=== PATIENT | female | born 1985 | race Caucasian/White ===

== ENCOUNTER 2016-11-24 10:54 | Inpatient (IN) | payer OTHER ==
[~2016-11-24] VITALS: Ht 167.6 cm; Wt 93.9 kg
[~2016-11-24 10:54] MED LIST: FLUO20CA25 PO; HYDROcodone-APAP 5-325 PO
[2016-11-24] MEDS ORDERED: Lactated Ringer's 1,000 ML IV PRN (11:26)
[2016-11-24] MEDS ORDERED: Oxytocin 10 Unit/mL Inj IM PRN ×2 (11:30→22:05)
[2016-11-24] MEDS ORDERED: Hemorrhage Kit, Post Partum XX ONE ×3 (11:30→22:05)
[2016-11-24] MEDS ORDERED: Ondansetron 2 mg/mL 2 mL Inj IVPUSH PRN (11:30)
[2016-11-24] MEDS ORDERED: fentaNYL-PF 50 mCg/mL 2 mL Inj IVPUSH PRN (11:30)
[2016-11-24] MEDS ORDERED: Methylergonovine 0.2 mg/mL Inj IM PRN ×2 (11:30→22:05)
[2016-11-24] MEDS ORDERED: Sodium Chloride LOK Flush 10 mL Syringe IVFLUSH PRN (11:30)
[2016-11-24] MEDS ORDERED: Oxytocin 30 Units/500 mL LR 30 UNITS in IV Premix 1 EACH IV PRN ×3 (11:30→22:05)
[2016-11-24] MEDS ORDERED: Carboprost 250 mCg/mL Inj IM PRN ×2 (11:30→22:05)
[2016-11-24 11:48] LABS: Mean Corpuscular Hemoglobin 31.1 pg (27.0-35.0); Mean Corpuscular Volume 92.3 fL (81-100)
--- NOTE | 2016-11-24 13:00 | PCM.HPOB ---
Subjective Date of Service: Nov 24, 2016 Referring Provider: Admitting Physician: Gely Cramer MD Primary Care Physician: Alex Villarreal MD Attending Physician: Gely Cramer MD Chief Complaint rupture of membrane this morning around 7 AM. History of Present History of Present Illness 31 y/o, , at 37 wk 6 d, EDC 12/09/16 by 10 wk u/s with unsure LMP, came to [facility] at 11 AM today for ruptured membrane at 7 AM this morning, with clear fluid. Initial exam revealed that her cervix was 3 to 4 cm dilated. Her was complicated by mild depression, anxiety. She has a history of right side ectopic required lap linear salpingostomy on 08/15/15. No major issues during her current otherwise. Her blood type: A+; RPR nonreactive; rubella imm; Hep B surface antigen neg; HIV neg; GC/CT neg; quad screen normal; glucose tolerance tests normal; GBS neg. OB History: (3), Para (1), (1) Past Medical History Obstetrical History: right side ectopic for her 2nd . Medical History: depression, anxiety Hx Tobacco Use: No Past Family History Living Arrangement: with Family Genetic Screening/Counseling Genetic Screening/Counseling: Negative Review of Systems Constitutional: Y: Change of appitite, Chills, Dizziness, Fever, Malaise, Other , Pain, Sweats, Weakness, Weight loss Eyes: Denies: Blurred Vision, Conjunctive Inflammation, Double Vision, Eyelid Inflammation, Other, Pain, Redness, Vision Changes ENT: Denies: Dental Problems, Dysphagia, Ear Discharge, Ear Pain, Hoarseness, Membranes Dry, Nasal Congestion, Nose Discharge, Nose Pain, Other, Throat Pain, Tinnitus, Ulcers/Sores in Mouth Cardiovascular: Denies: Chest Pain, Edema, Orthopnea, Other, Palpitations, SOB while laying flat Respiratory: Denies: Cough, Cough with bloody sputum, Other, Pleuritic Chest Pain, Pleuritic Chest Pain, SOB with Exertion, Sputum, Wheezing Gastrointestinal: Denies: Abdominal Pain, Black tarry stools, Blood in stool ( red), Change in Appetite, Constipation, Diarrhea, Epigastric pain, Heartburn, Nausea, Other, Use of Laxatives, Vomiting Genitourinary: Denies: Anuria, Change in Frequency, Dysuria, Hematuria, Incontinence, Nocturia, Other, Retention Musculoskeletal: Denies: Back Pain, Deformity, Limitation of Function, Neck Pain, Other, Redness, Shoulder Pain, Swelling Skin/Breasts: Denies: Bruising, Discharge, Dry or Flakiness, Jaundice, Lesions , Masses, Mastalgia, Other, Rash, Scars, Ulcers Skin: Denies: Bruising, Dry or Flakiness, Jaundice, Lesions, Other, Rash, Scars , Ulcers Neurological: Denies: Change in Speech, Confusion, Dizziness, Incoordination, Numbness, Other, Seizures, Somnolence, Tremors, Weakness Psychologic: Denies: Agitation, Anxious, Apprehensive, Depression, Insomnia, Instability, Nervousness, Other Endocrine: Denies: Blood Glucose Review, Change in Appitite, Diaphoresis, Excessive Thirst, Intolerent to Heat/Cold, Other, Recent A1C, Urinating frequently Hematologic: Denies: Abnormal bleeding, Adenopathy, Bruising, Other Allergy Coded Allergies: Sulfa (Sulfonamide Antibiotics) (Verified Allergy, Unknown, 08/15/15) cefaclor (Verified Allergy, Unknown, 08/15/15) Exam Vital Signs normal Constitutional: Well-developed, Well-nourished HEENT: Atraumatic, PERRLA Lungs: Clear to Auscultation Heart: Exam Unremarkable, Regular Rate/Rhythm, Normal S1, Normal S2, No Murmurs /Rubs/Gallops Fundus heart tone: category 1 tracing. Abdomen: Gravid Extremities: Pulses Palpable x4, Warm, No Edema Neurological/Psychiatric: Alert, Oriented X3, Cooperative, No Acute Distress Neuro: Grossly Neurologically Intact Labs/Diagnostics Labs Aem=701, [id number] Maternal Blood Type: A Hx Rho(D) Immune Globulin: No Group B Strep Results: Negative OB Intrapartum Assessment/Plan Assessment term with premature rupture of membrane; GBS neg; anticipate normal vaginal delivery through active labor management. The case was discussed with Dr. Clayton. Gely Cramer MD Nov 24, 2016 13:00
[2016-11-24] MEDS ORDERED: fentaNYL 2 mCg/mL-Bupivicaine 0.125% 100 mL Premix EPIDURAL ONE (13:02)
[2016-11-24] MEDS: Lactated Ringer's 1,000 ML IV PRN ×2 (16:09→18:18)
[2016-11-24] MEDS: Lactated Ringer's 1,000 ML IV SCH (22:00)
[2016-11-24] MEDS ORDERED: Benzocaine (Dermoplast) 20% 60 Gm Spray TOPICAL PRN (22:05)
[2016-11-24] MEDS ORDERED: HYDROcodone-APAP 5-325 mg Tablet PO PRN (22:05)
[2016-11-24] MEDS ORDERED: Witch Hazel-Glycerin Pads TOPICAL PRN (22:05)
[2016-11-24] MEDS ORDERED: LANOlin HPA 7 Gm Ointment TOPICAL PRN (22:05)
--- NOTE | 2016-11-24 22:33 | PCM.OBVAG ---
Vaginal Delivery Date of Service Nov 24, 2016 Pre Operative Diagnosis Pre Operative Diagnosis 37 weeks 6 days gestation SROM Post Operative Diagnosis Post Operative Diagnosis 37 weeks 6 days gestation SROM Retained Placenta Procedure Procedure: 1. 2. Manual extraction of placenta Obstetical Procedure: Normal Spontaneous Vaginal Delivery, Manual Extraction of Placenta (done by Dr. Alex Villarrela) Corridor Redevelopment Manager/Machine Steak Tenderizer Provider and Machine Steak Tenderizer: Alex Villarreal Indication for Procedure Indication for Procedure 31 at 37 weeks 6 days SROM brought in for induction of labor(see Dr. Cramer' s note) Induction: Induction of labor, SROM Findings Obstetrical Findings: [place] (Male), Cord (3 Vessel), Presentation (Vertex), 1 minute (9), 5 minutes (9), 10 minutes, Placenta (Intact/ Normal) Analgesia/Medications Obstetrical Anesthesia: IV pain medication Procedure Details Procedure Details Dr. Villarreal was notified of possible precipitous delivery and was in route to the [facility]. Dr Holly was immediately available on the [facility] and was called for delivery. The patient was completely dilated at 20:58. A sterile drape was placed under the patient's buttocks and delivered in a cephalic presentation at 2101. After delivery of the Dr. Villarreal stepped in to deliver the placenta. I was called back to the room for a retained placenta and observed Dr. Villarreal perform a manual extraction. The patient was given 100mcg of fentanyl prior to extraction of placenta. The placenta was delivered intact at 2144. The fundus was firm and bleeding controlled. Patient was hypotensive, but recovered without additional intervention. Apgars 9 and 9. was placed on maternal abdomen for skin to skin bonding and cord blood was sent. Blood Loss & Administration Estimated Blood Loss: 700 Blood Admin during procedure: No Post Procedure Plan Post Procedure Plan Routine pp care Post delivery Condition: Mom stable, Baby stable to nursery Kandis Holly MD Nov 24, 2016 22:33
[2016-11-25 07:00] LABS: Mean Corpuscular Hemoglobin 31.4 pg (27.0-35.0); Mean Corpuscular Volume 93.3 fL (81-100)
[2016-11-25] MEDS: Ascorbic Acid 500 mg Tablet PO SCH ×2 (08:40→17:52)
[2016-11-25] MEDS: Lactated Ringer's 1,000 ML IV SCH (14:01)
[2016-11-25 17:55] VITALS: BP 123/87; PULSE 82; RESP 20
--- NOTE | 2016-11-25 18:07 | PCM.DIOB ---
Obstetrical Disch Instruction Date of Service: Nov 25, 2016 Dates of Hospitalization Date of Hospital Admission Nov 24, 2016 at 11:23 Providers Admitting Physician: Gely Cramer MD Primary Care Physician: Alex Villarreal MD Attending Physician: Gely Cramer MD Discharge Diagnosis Problems: (1) (normal spontaneous vaginal delivery) Status: Acute ICD Code: O80 (2) hemorrhage Status: Acute ICD Code: O72.1 (3) Retained placenta Status: Acute ICD Code: O73.0 (4) Anemia Qualifiers: Other causes of anemia: acute posthemorrhagic Status: Acute ICD Code: D64.9 Diet Discharge Diet: No restrictions Activity Discharge Activity-General: Pelvic Rest for 6 weeks, Try not to overdue, Be up and about, Balance rest and activity, Activity as energy allows Dressing and Incisional Care Hygiene: May shower, Perineal care, Sitz bath, Dermoplast spray, Witch Laura pads, Ice Additional Instructions Discharge Instructions Ibuprofen, DSS, vitamins and ferrous sulfate (iron) all sent electronically to Pending sale to [facility] by provider through outpatient ([facility]) electronic medical record system Follow Up Plan Follow-up Provider (F9): Alex Villarreal MD Follow-up appointment: Weeks (6) Call your provider for: Fever or Chills, Shortness of breath, Heavy vaginal bleeding, Heavy bleeding, Excessive constipation, Vaginal discomfort (swollen, painful leg), Red painful breasts Alex Villarreal MD Nov 25, 2016 18:07
--- NOTE | 2016-11-26 01:38 | DIS ---
[address] [address] DISCHARGE SUMMARY PATIENT: FLORINDA REYNOLDS : 1985 MR#: [id number] ADMIT: 11/24/2016 JOB ID: [id number] DIS: 11/25/2016 ADMISSION DIAGNOSES: 1. Term, premature rupture of membranes (PROM). 2. Induction. DISCHARGE DIAGNOSES: 1. 3 now para 2, status post normal spontaneous vaginal delivery (), induction for premature rupture of membranes (PROM). 2. Anemia, status post hemorrhage with retained placenta requiring manual removal. CONSULTATION DURING HOSPITALIZATION: Kandis Holly MD HOSPITAL COURSE: For details of admission, see H and P by Dr. Cramer. Briefly, the patient admitted at term with PROM. After did not go into spontaneous labor, Pitocin was started approximately 5-6 hours prior to delivery. The patient first began having moderately severe contractions around 5 cm and delivered less than 60 minutes later, precipitously. Pitocin was continued after delivery of , with dose increased, also Cytotec. However, the patient became hypotensive, with ongoing bleeding (EBL 700 cc), so decision made to manually remove placenta, which resolved hypotension and bleeding. For further details, please see delivery note by Dr. Holly. , the patient did quite well and was ambulating without any dizziness or weakness within a few hours of delivery. Good p.o. intake. Normal bowel function. Bleeding normal. Breast-feeding without pain. Because of the need for manual extraction, she was kept on doxycycline while in the hospital (she is allergic to CEPHALEXIN and SULFONAMIDE), and had no fever or other signs of infection. OBJECTIVE: Vital signs stable. She is in no acute distress. Pleasant, cooperative on date of exam. Cardiovascular: S1, S2. No murmurs, gallops, or rubs. Lungs: Clear to auscultation bilaterally. No crackles, rhonchi, or wheezes. Abdomen is soft. Uterus is soft but firms with massage, and one fingerbreadth below the umbilicus. Lower extremities are without edema. Nontender. DISCHARGE LABORATORY: Show white count 16.7, hematocrit 27.9 (decreased from 39.4, prior to delivery), platelets 251. DISPOSITION: The patient is discharged home with boy. The patient will follow up in six weeks at the [facility] with enio Pinto. Ibuprofen, vitamins, b.i.d. ferrous sulfate, and docusate all faxed to [facility] at discharge. Usual signs and symptoms of peripartum complications were reviewed with the patient prior to discharge and reviewed how to treat those as well as access care when indicated.
== END 2016-11-25 18:37 | disposition home or self-care (01) | DRG 774 ==
LOC: FBCO 10:54 → FBC 11:23
PROVIDERS: ADMIT Family Medicine; ATTEND Obstetrics & Gynecology
PROC: 10E0XZZ Delivery of Products of Conception, External Approach (ICD-10-PCS; principal; 2016-11-24)
PROC: 10J1XZZ Inspection of Products of Conception, Retained, External Approach (ICD-10-PCS; 2016-11-24)
DX: O62.3 Precipitate labor (principal); O72.2 Delayed and secondary postpartum hemorrhage; D64.89 Other specified anemias; O90.81 Anemia of the puerperium; Z3A.37 37 weeks gestation of pregnancy; Z37.0 Single live birth

== ENCOUNTER 2017-04-08 18:18 | Emergency (ER) | payer OTHER ==
[~2017-04-08] VITALS: Ht 167.6 cm; Wt 77.3 kg
[2017-04-08 18:47] VITALS: BP 112/80; PULSE 94; RESP 12; O2SAT 99
--- NOTE | 2017-04-08 18:52 | ED.REPORT ---
HPI-Extremity Problem Lower Date of Service Apr 08, 2017 ED Provider: Goran Berry DO Patient is a 31 year old female with no pertinent medical history who presents to the ED complaining of right ankle pain onset last night. She reports that she jumped off the deck and rolled her ankle after landing in a pot hole. Associated symptoms include right ankle swelling. Nursing Notes Stated Complaint: POSSIBLE RIGHT ANKLE SPRAIN Chief Complaint: Extremity Trauma Nursing Notes Reviewed: Yes Allergies: Coded Allergies: Sulfa (Sulfonamide Antibiotics) (Verified Allergy, Unknown, 08/15/15) cefaclor (Verified Allergy, Unknown, 08/15/15) Scheduled Fluoxetine (Fluoxetine) 20 Mg Capsule 20 MG PO DAILY Scheduled PRN ([HYDROcodone-APAP 5-325]) 1 TABLET TABLET 1-2 TABLET PO Q4H PRN PRN For Moderate Pain General Time Seen by MD: 18:52 Chief Complaint Ankle injury right Hx Obtained From: Patient Arrived By: Walk-in Onset Occurred: Yesterday Symptom Duration: Since onset Caused by: Accidental Location: : Ankle right Quality: Painful Severity: Current: Moderate Exacerbated by: Movement Similar Sx Previous: No Past Medical History Past Medical History Chlamydial STI Smoking History Current Every Day Smoker Social History Other Social History: Good social support, Ambulatory Status Independent Review of Systems Constitutional: Denies: Chills, Fever Musculoskeletal: Reports: Extremity pain, Extremity swelling Skin: Denies Bruising, Denies Itching, Denies Rash Neurologic: Reports: Problem walking, Denies: Numbness, Weakness Complete sys rev & neg: except as marked. Respiratory: Denies: Non-productive cough, Shortness of breath Physical Exam Initial Vital Signs Vital Signs (First) Date Time Temp Pulse Resp B/P Pulse Ox O2 Delivery O2 Flow Rate FiO2 04/08/17 18:47 37.1 94 12 112/80 99 Room Air Initial VS: Reviewed Lower Extremity / Pelvis / MS: Atraumatic, No deformity ANKLE: right high ankle sprain tenderness to the distal tib/fib and malleolous foot nontender General/Constitutional: Awake, Alert, Well appearing Respiratory / Chest: Atraumatic, Breath sounds NL, Breath sounds = bilat, No respiratory distress Cardiovascular: Heart rate NL, Regular rhythm, Heart sounds NL Skin: Atraumatic, Color NL, No rash, Warm, Dry Neurologic: Oriented X3, Speech NL, No motor deficits, No sensory deficits, CN II - XII intact Head / Eyes: Atraumatic, Normocephalic, PERRL, EOMI Upper Extremity / MS: Atraumatic, Full range of motion Psychiatric: Affect NL, Mood NL Interpretation & Diagnostics X-Ray Interpretation Xray Interpretation: IMPRESSION: Distal fibular fracture, diagonal, minimally displaced, and no additional injury is found. Dictated by: Enmanuel Alfonso M.D. on 04/08/2017 at 19:51 Approved by: Enmanuel Alfonso M.D. on 04/08/2017 at 19:53 X-Ray Ordered: Ankle right Interpretation / Wet Read by: Interpret - Radiologist Xray Interpretation: IMPRESSION: Distal fibular metadiaphyseal junction fracture, diagonal, minimally displaced. Dictated by: Enmanuel Alfonso M.D. on 04/08/2017 at 19:53 Approved by: Enmanuel Alfonso M.D. on 04/08/2017 at 19:54 X-Ray Ordered: Tibia fibula right Interpretation / Wet Read by: Interpret - Radiologist Procedures Splint Application - Fx Mgt Time: 19:50 Procedure Performed by: Fur Joiner Precise Anatomic Location: right ankle Type of Immobilization: Posterior short leg (cam boot) Definitive Fracture Care: Pain control Post-Procedure / Complications: Cap refill normal, Post splint vascular nl, Post splint neuro nl, Condition improved, Tolerated procedure well, Patient stable Re-Eval/Medical Decision Med Decision/Clinical Course CT and X-ray showed obvious sign of distal fibular metadiaphyseal junction fracture. Patient was given a leg immobilizer boot and referral to follow up with ortho this week. Re-Evaluation/Progress : Time of Eval: 19:50 Counseled Regarding: Diagnosis, Lab results, Need for follow-up, When/why to return to ED Discharge & Departure Impression: Primary Impression: Ankle fracture, lateral malleolus, closed Encounter type: initial encounter Fracture alignment: nondisplaced Laterality: right Qualified Code: S82.64XA - Nondisplaced fracture of lateral malleolus of right fibula, initial encounter for closed fracture Disposition: Home Discharge Condition All VS Reviewed: Yes Condition: Stable Patient Instructions: Ankle Fracture (ED), Crutch Instructions (ED), Splint Care (ED) Additional Instructions: Your X-ray showed a fracture of your distal fibula near the joint. This may need surgical intervention. You can take 1-2 [place] every 6 hours as needed for pain. Do not breastfeed while taking the pain medication. Do not drink alcohol or drive with the pain medication. Do not combine with Acetaminophen. Do not drive tonight as you received pain medication in the ED. Wear the boot until cleared by ortho. Do not bear weight on the leg until seen by ortho. Follow up with the ortho referral attached next week. Call Sunday to set up a follow up. Return to the emergency department if you develop any new or concerning symptoms. Referrals: Alex Villarreal MD (PCP) Efren White MD Attestation Portions of this note were transcribed by Hattie Rocha. I, Dr. Berry personally performed the history, physical exam and medical decision-making; I reviewed and confirmed the accuracy of the information in the transcribed note. Signed by: Eric Bello, 04/08/17 and 2007 copies to: Efren White MD; Alex Villarreal MD, Todd P DO Apr 08, 2017 18:52 Elif Rocha Apr 08, 2017 19:15
[2017-04-08] MEDS ORDERED: HYDROcodone-APAP 5-325 mg Tablet PO ONE (19:00)
--- NOTE | 2017-04-08 19:54 | DRSVH ---
PROCEDURE: X-RAY RIGHT ANKLE, MINIMUM THREE VIEWS ([id number]) INDICATIONS: ankle trauma TECHNIQUE: 3 views of the ankle were acquired. COMPARISON: None. FINDINGS: Bones: No dislocations. Ankle mortise is normally aligned. No suspicious bony lesions. There is a diagonal fracture involving the metadiaphyseal junction of the distal fibula, with overlying mild so ft tissue swelling Soft tissues: No tibiotalar joint effusion. Achilles tendon appears normal. IMPRESSION: Distal fibular fracture, diagonal, minimally displaced, and no additional injury is foun d. Dictated by: Enmanuel Alfonso M.D. on 04/08/2017 at 19:51 Approved by: Enmanuel Alfonso M.D. on 04/08/2017 at 19:53
--- NOTE | 2017-04-08 19:56 | DRSVH ---
PROCEDURE: X-RAY RIGHT TIBIA/FIBULA, TWO VIEWS ([id number]) INDICATIONS: ankle trauma TECHNIQUE: 2 views of the tibia and fibula were acquired. COMPARISON: None. FINDINGS: Bones: No dislocations. No suspicious bony lesions. There is a diagonal fracture involving the dis rachna diaphyseal and metadiaphyseal margins of the lower fibula, without displacement Soft tissues: No suspicious soft tissue calcifications or masses. IMPRESSION: Distal fibular metadiaphyseal junction fracture, diagonal, minimally displaced. Dictated by: Enmanuel Alfonso M.D. on 04/08/2017 at 19:53 Approved by: Enmanuel Alfonso M.D. on 04/08/2017 at 19:54
[2017-04-08 20:25] VITALS: BP 115/81; PULSE 87; RESP 12; O2SAT 99
== END 2017-04-08 20:26 | disposition home or self-care (01) ==
LOC: SED 18:18
DX: S82.64XA Nondisplaced fracture of lateral malleolus of right fibula, initial encounter for closed fracture (principal); X50.1XXA Overexertion from prolonged static or awkward postures, initial encounter; Y93.39 Activity, other involving climbing, rappelling and jumping off; Y92.019 Unspecified place in single-family (private) house as the place of occurrence of the external cause; Y99.8 Other external cause status; F17.200 Nicotine dependence, unspecified, uncomplicated; Z88.1 Allergy status to other antibiotic agents; Z88.2 Allergy status to sulfonamides